=== PATIENT | male | born 1940 | race Caucasian/White ===

== ENCOUNTER 2017-04-09 02:41 | Emergency (ER) | payer OTHER, MEDICARE ==
[~2017-04-09] VITALS: Ht 162.6 cm; Wt 79.4 kg
[~2017-04-09 02:41] MED LIST: AMLODIPINE BESYL5 M1 PO; ATORVASTATIN CA40 M1 PO; AUGMENTIN 875-1 EACH PO; ERYTHROMYCIN1 GM OPH; FUROSEMIDE20 M1 PO; KEFLEX250 M1 PO; LEVEMIR FL100 UNIT/1 SQ; LISINOPRIL20 M1 PO; METFORMIN HCL500 M4 PO; OXYCODONE HCL5 M1 PO; PERCOCET 325 MG1 TA2 PO; SPIRONOLACTONE50 M1 PO; TRAMADOL HCL50 M1 PO
--- NOTE | 2017-04-09 03:07 | ED GI/GU/ABDOMINAL COMPLAINT ---
History of Present Illness General Chief Complaint: General Adult Stated Complaint: "I HAVE TO BE SEEN I HAVE PAIN" Source: patient Exam Limitations: no limitations Vital Signs & Intake/Output Vital Signs & Intake/Output Vital Signs Date Time Temp Pulse Resp B/P B/P Pulse O2 O2 Flow FiO2 Mean Ox Delivery Rate 04/09 1122 98.5 58 20 113/64 97 Room Air 04/09 0900 98.0 74 16 111/54 95 Room Air 04/09 0422 77 26 122/78 94 04/09 0255 97.1 73 28 135/77 93 Room Air Room Air Allergies Coded Allergies: NO KNOWN ALLERGIES (09/24/15) Reconcile Medications Amlodipine Besylate 5 MG TABLET 1 TAB PO DAILY HTN (Reported) Atorvastatin Calcium 40 MG TABLET 1 TAB PO DAILY HPL (Reported) Cyclobenzaprine HCl 10 MG TABLET 1 TAB PO BID PRN SPASM Furosemide 20 MG TABLET 1 TAB PO DAILY EDEMA (Reported) Insulin Detemir (Levemir Flextouch) 100 UNIT/ML (3 ML) INSULN.PEN 18 U SQ DAILY DIABETES (Reported) Lisinopril 20 MG TABLET 1 TAB PO DAILY HTN (Reported) Metformin HCl (Metformin HCl ER) 500 MG TAB.ER.24H 2 TAB PO BID DIABETES ( Reported) Oxycodone HCl 5 MG TABLET 1 TAB PO TIDPRN PRN PAIN (Reported) Spironolactone 50 MG TABLET 1 TAB PO DAILY EDEMA (Reported) Tramadol HCl 50 MG TABLET 1 TAB PO TIDPRN PAIN (Reported) Triage Note: 76YO MALE TO TRIAGE W/CO L FLANK AREA PAIN THAT BEGAN 2300 TONITE. Triage Nurses Notes Reviewed? yes Onset: Abrupt Duration: hour(s): (FEW) Timing: single episode today Location: left flank Radiation: UPPER BACK Activities at Onset: rest No Modifying Factors: none Associated Symptoms: MUSCLE PAIN HPI: This is a 76-year-old male with history of lung cancer on chemotherapy who presents to the ER for chief complaint of sudden onset of left flank pain that started at 11:00 last evening. Pain radiates up to his upper back. No radiation to the front of the abdomen. Denies any testicular pain or penile pain. Denies any hematuria. He states he does have a bit of a smell to it. Patient states he was post to have chemotherapy he had a little bit of a cold symptom and the dilated. No fever or chills. He doesn't feel bit more short of breath than usual. Patient is an active smoker still. He denies any trauma. (Sonam Braswell MD) Past History Travel History Traveled to [place] past 21 day No Medical History Any Pertinent Medical History? see below for history Neurological: NONE EENT: NONE Cardiovascular: hypertension, hyperlipidemia Respiratory: bronchitis, emphysema, LUNG CA RECIEVING CHEMO Gastrointestinal: NONE Hepatic: NONE Renal: NONE Musculoskeletal: MULTIPLE BACK SURGERIES Psychiatric: NONE Endocrine: diabetes Blood Disorders: NONE Cancer(s): lung cancer History of MRSA: No History of VRE: No History of CDIFF: No Surgical History Surgical History: BACK SURGERY 20YRS AGO Psychosocial History Who do you live with Patient/Self Services at Home None What is your primary language German Tobacco Use: Current Daily Use Daily Tobacco Use Amount/Type: => 5 Cigarettes daily Family History Family History, If Any: No Known Family History. Hx Contributory? No (Sonam Braswell MD) Review of Systems Review of Systems Constitutional: Denies: chills, fever. EENTM: Reports: no symptoms. Respiratory: Reports: no symptoms. Cardiovascular: Denies: chest pain, peripheral edema. GI: Reports: no symptoms. Genitourinary: Reports: no symptoms. Musculoskeletal: Reports: gout. Skin: Reports: no symptoms. Neurological/Psychological: Reports: no symptoms. Hematologic/Endocrine: Denies: bruising, bleeding, polyuria, polydipsia. Immunologic/Allergic: Reports: no symptoms. All Other Systems: Reviewed and Negative (Sonam Braswell MD) Physical Exam Physical Exam General Appearance: well developed/nourished, alert, awake, anxious, mild distress, moderate distress Head: atraumatic, normal appearance Eyes: Bilateral: normal appearance, PERRL, EOMI. Ears, Nose, Throat, Mouth: hearing grossly normal, moist mucous membrane Neck: normal inspection, supple, full range of motion Respiratory: normal breath sounds, chest non-tender, no respiratory distress Cardiovascular: regular rate/rhythm, normal peripheral pulses Peripheral Pulses: 2+ radial (R), 2+ radial (L) Gastrointestinal: normal bowel sounds, soft, non-tender Back: normal inspection, normal range of motion Extremities: normal range of motion, evidence of injury Neurologic/Psych: no motor/sensory deficits, awake, alert, oriented x 3 Skin: intact, normal color, warm/dry Core Measures ACS in differential dx? No Sepsis Present: No Sepsis Focused Exam Completed? No (Michaelle AUGUSTIN,Sonam) Progress Differential Diagnosis: PE, PTX, RENAL STONE, PYELONEPHRITIS, MUSCULOSKELETAL PAIN Plan of Care: Orders Procedure Date/time Status Regular Diet 04/09 L Active Add-on Test (ER Only) 04/09 0436 Active D-DIMER 04/09 0335 Complete EKG 04/09 0327 Active PARTIAL THROMBOPLASTIN TIME 04/09 030 Complete PROTHROMBIN TIME 04/09 030 Complete LACTIC ACID 04/09 030 Complete COMPREHENSIVE METABOLIC PANEL 04/09 030 Complete CBC WITHOUT DIFFERENTIAL 04/09 307 Complete URINALYSIS 04/09 0258 Complete Current Medications Sig/Litzy Start time Last Medication Dose Stop Time Status Admin Morphine Sulfate 2 MG ONCE ONE 04/09 040 CAN (Morphine) 04/09 040 Laboratory Tests 04/09/17 0608: Lactic Acid Cancelled 04/09/17 0440: Urine Color YEL, Urine Clarity CLEAR, Urine pH 7.0, Ur Specific Pep 1.015, Urine Protein TRACE H, Urine Ketones NEG, Urine Nitrite NEG, Urine Bilirubin NEG, Urine Urobilinogen 1.0, Ur Leukocyte Esterase NEG, Ur Microscopic SEDIMENT EXAMINED, Urine RBC 3-5, Urine Bacteria MOD H, Urine Mucus MOD H, Urine Hemoglobin NEG, Urine Glucose 250 H 04/09/17 0335: Anion Gap 13, Estimated GFR > 60, BUN/Creatinine Ratio 21.1, Glucose 129 H, Lactic Acid 1.6, Calcium 9.1, Total Bilirubin 0.4, AST 18, ALT 33, Alkaline Phosphatase 91, Total Protein 6.3, Albumin 3.6, Globulin 2.7, Albumin/Globulin Ratio 1.3, PT 10.6, INR 1.01, APTT 33, D-Dimer High Sensitivty 643 H, CBC w Diff NO MAN DIFF REQ, RBC 4.86, MCV 88.2, MCH 29.0, MCHC 32.8 L, RDW 15.9 H, MPV 8.2, Gran % 77.8 H, Lymphocytes % 11.9 L, Monocytes % 5.5, Eosinophils % 4.3, Basophils % 0.5, Absolute Granulocytes 9.3 H, Absolute Lymphocytes 1.4, Absolute Monocytes 0.7 H, Absolute Eosinophils 0.5, Absolute Basophils 0.1 4:20 AM ONLY SOME RELIEF AFTER MORPHINE. DILAUDID ORDERED. LABS, UA PENDING. Diagnostic Imaging: Viewed by Me: CT Scan. Discussed w/RAD: CT Scan. CXR Impression: PATIENT: BALTAZAR MCNULTY PRESENT AGE: 76 PATIENT ACCOUNT NO: [id number] : 38 LOCATION: [facility] ORDERING PHYSICIAN: Sonam Braswell MD SERVICE DATE: 04/09/17 EXAM TYPE: CAT - CT ABD & PELVIS W IV CONTRAST; CTA CHEST-PULMONARY EMBOLISM EXAMINATION: CT ANGIOGRAM OF THE CHEST WITH AND WITHOUT CONTRAST (CT PULMONARY ANGIOGRAM FOR PE) CT ABDOMEN AND PELVIS WITH CONTRAST CLINICAL INFORMATION: Severe flank pain. Pleuritic back pain. Lung cancer, on chemotherapy. COMPARISON: Multiple priors, most recently PET CT performed 03/07/2017 TECHNIQUE: Prior to contrast administration, noncontrast localization images were obtained. Subsequently, multidetector volumetric imaging was performed from the thoracic inlet to below the diaphragms following the administration of 95 mL Optiray 320 intravenous contrast. This was followed by multidetector acquisition of the abdomen and pelvis. No contrast reaction reported Sagittal, coronal, and MIP oblique sagittal reformatted images were obtained on the CT workstation, uploaded to PACS, and reviewed. Total exam dose-length product 1250 mGy-cm FINDINGS: QUALITY OF STUDY/CONTRAST BOLUS: Satisfactory. PULMONARY ARTERIES: No central or segmental pulmonary emboli. Flow appears diminished into the left lung. THORACIC AORTA: No aneurysm or dissection. Tortuous course with atherosclerotic calcifications. LUNG: Volume loss of the left lung. The left mainstem bronchus is occluded. The opacification of the main stem bronchus has increased from previous. There is diffuse pleural thickening with diffuse opacification throughout much of the left lung. This appearance is similar to the prior. Calcified granuloma in the right lung. Mild centrilobular emphysema. Minimal atelectasis or fluid is seen along the right major fissure. No pleural effusion or pneumothorax. MEDIASTINUM: The heart is mildly enlarged. No pericardial effusion. No hilar or mediastinal lymphadenopathy. Right chest wall port in place. No evidence of septal bowing or right heart strain. CHEST WALL/AXILLA: No axillary or internal mammary lymphadenopathy. LIVER, GALLBLADDER, AND BILIARY TREE: The liver is normal in size, shape, and attenuation. No focal hepatic lesion or biliary ductal dilatation is present. The gallbladder is unremarkable with no evidence of radiopaque gallstones, gallbladder wall thickening, or obvious pericholecystic inflammatory changes. PANCREAS: Unremarkable. SPLEEN: Unremarkable. ADRENAL GLANDS: Unremarkable. KIDNEYS AND URETERS: The kidneys are normal in size, shape , and attenuation. No hydronephrosis, hydroureter, or calculi seen. No perinephric stranding. Multiple hypoattenuating lesions noted in the right kidney suggestive of cysts. BLADDER: Unremarkable. GASTROINTESTINAL TRACT: The stomach is unremarkable. The small bowel is normal in caliber without obstruction. There is no colonic wall thickening. Moderate colonic stool burden. Trace free fluid in the pelvis. Trace perihepatic fluid. There is increased nodularity throughout the omentum/mesentery, particularly in the right anterior abdomen. No free air. ABDOMINAL WALL: Small fat-containing inguinal hernias. LYMPH NODES: Normal. VASCULAR: Mildly ectatic infrarenal abdominal aorta, measuring 2.7 cm AP. Moderate atherosclerotic calcifications. PELVIC VISCERA: Mildly prominent prostate. The seminal vesicles are unremarkable. OSSEOUS STRUCTURES: Multilevel degenerative changes of the spine. No suspicious osseous lesions are identified. IMPRESSION: 1. No pulmonary embolism. 2. 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 3. Similar volume loss with pleural thickening and parenchymal nodularity in the left lung/ hemithorax. There is opacification of the left mainstem bronchus which is increased from prior. VTE: negative DICTATED BY: Daniel Escamilla MD DATE/TIME DICTATED:04/09/17619 PAPER [employer] MAKER:LUIZ DATE/TIME TRANSCRIBED:619 CONFIDENTIAL, DO NOT COPY WITHOUT APPROPRIATE AUTHORIZATION. < Electronically signed in Other Vendor System> SIGNED BY: Daniel Escamilla MD 04/09/17 0631 Initial ED EKG: NSR, 1ST DEGREE AV BLOCK, LAD, ST DEPRESSION I, AVL Hand-Off Endorsed To: Afshin Rowland MD Endorsed Time: 720 Pending: other (REEVALUATION) (Sonam Braswell MD) Comments: Improved with additional dilaudid and flexeril (Afshin Rowland MD) Departure Departure Condition: Stable (Sonam Braswell MD) Departure Time of Disposition: 1128 Disposition: HOME OR SELF CARE Clinical Impression Primary Impression: Flank pain Secondary Impressions: Acute electrocardiogram changes Referrals: Rosa AUGUSTIN,Mansoor Jacques (PCP/Family) Departure Forms: Customer Survey General Discharge Information Prescriptions: Current Visit Scripts Cyclobenzaprine HCl 1 TAB PO BID PRN SPASM #30 TAB Hydromorphone HCl (Dilaudid) 1 TAB PO Q4P PRN severe pain #20 TAB (Janett AUGUSTIN,Afshin)
[2017-04-09 04:06] LABS: ABSOLUTE BASOPHIL COUNT 0.1 /CUMM (0.0-0.2); ABSOLUTE EOSINOPHIL COUNT 0.5 /CUMM (0.0-0.7); ABSOLUTE GRANULOCYTE CT 9.3 /CUMM (1.4-6.5); ABSOLUTE LYMPH COUNT 1.4 /CUMM (1.2-3.4); ABSOLUTE MONOCYTE COUNT 0.7 /CUMM (0.10-0.60); BASOPHIL % 0.5 % (0.0-2.0); EOSINOPHIL % 4.3 % (0-5); GRANULOCYTE % 77.8 % (42.2-75.2); HEMATOCRIT 42.8 % (42-52); MEAN CORPUSCULAR HGB CONC 32.8 G/DL (33.0-37.0); MEAN CORPUSCULAR VOLUME 88.2 FL (80.0-94.0); MEAN PLATELET VOLUME 8.2 FL (7.4-10.4); PLATELET COUNT 237 /CUMM (130-400); RBC DISTRIBUTION WIDTH 15.9 % (11.5-14.5); RED BLOOD CELL CT 4.86 /CUMM (4.70-6.10)
[2017-04-09 04:17] LABS: PT 10.6 SEC (9.4-12.5); PTT 33 SEC (25-37)
--- NOTE | 2017-04-09 06:31 | CT SCAN REPORT ---
EXAMINATION: CT ANGIOGRAM OF THE CHEST WITH AND WITHOUT CONTRAST (CT PULMONARY ANGIOGRAM FOR PE) CT ABDOMEN AND PELVIS WITH CONTRAST CLINICAL INFORMATION: Severe flank pain. Pleuritic back pain. Lung cancer, on chemotherapy. COMPARISON: Multiple priors, most recently PET CT performed 03/07/2017 TECHNIQUE: Prior to contrast administration, noncontrast localization images were obtained. Subsequently, multidetector volumetric imaging was performed from the thoracic inlet to below the diaphragms following the administration of 95 mL Optiray 320 intravenous contrast. This was followed by multidetector acquisition of the abdomen and pelvis. No contrast reaction reported Sagittal, coronal, and MIP oblique sagittal reformatted images were obtained on the CT workstation, uploaded to PACS, and reviewed. Total exam dose-length product 1250 mGy-cm FINDINGS: QUALITY OF STUDY/CONTRAST BOLUS: Satisfactory. PULMONARY ARTERIES: No central or segmental pulmonary emboli. Flow appears diminished into the left lung. THORACIC AORTA: No aneurysm or dissection. Tortuous course with atherosclerotic calcifications. LUNG: Volume loss of the left lung. The left mainstem bronchus is occluded. The opacification of the main stem bronchus has increased from previous. There is diffuse pleural thickening with diffuse opacification throughout much of the left lung. This appearance is similar to the prior. Calcified granuloma in the right lung. Mild centrilobular emphysema. Minimal atelectasis or fluid is seen along the right major fissure. No pleural effusion or pneumothorax. MEDIASTINUM: The heart is mildly enlarged. No pericardial effusion. No hilar or mediastinal lymphadenopathy. Right chest wall port in place. No evidence of septal bowing or right heart strain. CHEST WALL/AXILLA: No axillary or internal mammary lymphadenopathy. LIVER, GALLBLADDER, AND BILIARY TREE: The liver is normal in size, shape, and attenuation. No focal hepatic lesion or biliary ductal dilatation is present. The gallbladder is unremarkable with no evidence of radiopaque gallstones, gallbladder wall thickening, or obvious pericholecystic inflammatory changes. PANCREAS: Unremarkable. SPLEEN: Unremarkable. ADRENAL GLANDS: Unremarkable. KIDNEYS AND URETERS: The kidneys are normal in size, shape, and attenuation. No hydronephrosis, hydroureter, or calculi seen. No perinephric stranding. Multiple hypoattenuating lesions noted in the right kidney suggestive of cysts. BLADDER: Unremarkable. GASTROINTESTINAL TRACT: The stomach is unremarkable. The small bowel is normal in caliber without obstruction. There is no colonic wall thickening. Moderate colonic stool burden. Trace free fluid in the pelvis. Trace perihepatic fluid. There is increased nodularity throughout the omentum/mesentery, particularly in the right anterior abdomen. No free air. ABDOMINAL WALL: Small fat-containing inguinal hernias. LYMPH NODES: Normal. VASCULAR: Mildly ectatic infrarenal abdominal aorta, measuring 2.7 cm AP. Moderate atherosclerotic calcifications. PELVIC VISCERA: Mildly prominent prostate. The seminal vesicles are unremarkable. OSSEOUS STRUCTURES: Multilevel degenerative changes of the spine. No suspicious osseous lesions are identified. IMPRESSION: 1. No pulmonary embolism. 2. 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 3. Similar volume loss with pleural thickening and parenchymal nodularity in the left lung/hemithorax. There is opacification of the left mainstem bronchus which is increased from prior. VTE: negative
[2017-04-09] MEDS ORDERED: CYCLOBENZAPRINE10 M1 PO (07:23)
[2017-04-09] MEDS ORDERED: DILAUDID2 M1 PO (11:32)
[2017-04-09 12:50] VITALS: BP 115/79
== END 2017-04-09 12:56 ==
LOC: ERH 02:41
PROVIDERS: Emergency Medicine
DX: R10.32 Left lower quadrant pain (principal); R94.31 Abnormal electrocardiogram [ECG] [EKG]
CPT/HCPCS: 74177; 81001; 93005; 93010; 96361; 96374; 96375; 96376; J7040